=== PATIENT | male | born 1960 | race Caucasian/White ===

== ENCOUNTER 2016-12-20 15:50 | Inpatient (IN) | payer OTHER ==
[~2016-12-20] VITALS: Ht 175.3 cm; Wt 72.5 kg
[~2016-12-20 15:50] MED LIST: ASPI81 PO; CENTTAB9 PO; HYDR12.56 PO; LISI-360 PO
[2016-12-20] MEDS ORDERED: IOHEXOL 350 MG/ML 10 ML VIAL (for RAD DIAG) IVCONTRAST ONE (15:51)
[2016-12-20] MEDS ORDERED: MORPHINE SULFATE 8 MG/ML INJ ONE (15:54)
[2016-12-20] MEDS ORDERED: ONDANSETRON HCL 4 MG/2 ML VIAL ONE (15:55)
[2016-12-20] MEDS ORDERED: DIPHTH/TETANUS/ACEL PERTUSSIS (BOOSTER) 0.5 ML VIAL/PFS IM ONE (16:03)
[2016-12-20 16:22] LABS: AUTOMATED NEUTROPHIL # 6.2 TH/MM3 (1.8-7.7); BASOPHIL # 0.1 TH/MM3 (0-0.2); EOSINOPHIL # 0.3 TH/MM3 (0-0.4); EOSINOPHIL % 2.7 % (0.0-4.0); HEMATOCRIT 48.8 % (39.0-51.0); HEMO FLAGS DIFF FINAL; LYMPH % 36.4 % (9.0-44.0); LYMPHOCYTE # 4.3 TH/MM3 (1.0-4.8); MEAN CORPUSCULAR HEMOGLOBIN 31.4 PG (27.0-34.0); MEAN CORPUSCULAR HGB CONC 34.1 % (32.0-36.0); MONO % 7.6 % (0.0-8.0); NEUT % 52.3 % (16.0-70.0); PLATELET COUNT 211 TH/MM3 (150-450); RED BLOOD COUNT 5.31 MIL/MM3 (4.50-5.90); RED CELL DISTRIBUTION WIDTH 13.6 % (11.6-17.2); WHITE BLOOD COUNT 11.8 TH/MM3 (4.0-11.0)
[2016-12-20 16:25] VITALS: O2SAT 98
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
[2016-12-20] MEDS ORDERED: ceFAZolin 2 GM PREMIX 50 ML ONE (16:29)
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
[2016-12-20 16:33] LABS: APTT (PATIENT) 24.7 SEC (24.3-30.1); PROTHROMBIN TIME - PATIENT 10.7 SEC (9.8-11.6)
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
[2016-12-20 16:51] VITALS: BP 159/82; PULSE 95; RESP 20; O2SAT 96
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
[2016-12-20] MEDS ORDERED: MORPHINE SULFATE 4 MG/ML INJ IV PUSH ONE (17:15)
[2016-12-20 17:57] VITALS: BP 150/89; PULSE 85; RESP 22; O2SAT 96
[2016-12-20] MEDS ORDERED: HYDROmorphone HCL PF 1 MG/ML VIAL ONE (18:06)
[2016-12-20 18:15] VITALS: BP 158/86; PULSE 88; RESP 30; TEMP 99.2; O2SAT 95
[2016-12-20] MEDS ORDERED: ENALAPRILAT 1.25 MG/ML VIAL IV PUSH PRN (18:30)
[2016-12-20] MEDS ORDERED: ACETAMINOPHEN/HYDROcodone 325 MG/5 MG TAB PO PRN ×2 (18:30)
[2016-12-20] MEDS ORDERED: MISCELLANEOUS NURSING INFORMATION XX SCH (18:30)
[2016-12-20] MEDS ORDERED: CHLORHEXIDINE GLUCONATE 2 % 1 PACK (2 CLOTHS) TOP PRN (18:30)
[2016-12-20] MEDS ORDERED: SODIUM CHLORIDE 0.9% FLUSH 10 ML FLUSH IV FLUSH PRN (18:30)
[2016-12-20] MEDS ORDERED: ONDANSETRON HCL 4 MG/2 ML VIAL IV PUSH PRN (18:30)
[2016-12-20] MEDS: SODIUM CHLOR 0.9% 1000 ML INJ 1,000 ML IV SCH (18:32)
[2016-12-20] MEDS: HYDROmorphone HCL PF 1 MG/ML VIAL IVP PRN (18:32)
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
[2016-12-20 20:00] VITALS: BP 118/81; PULSE 72; PULSE 76; RESP 18; TEMP 99.4; O2SAT 94; O2SAT 95
[2016-12-20] MEDS: DOCUSATE SODIUM 50 MG/SENNA 8.6 MG TAB PO SCH (20:24)
[2016-12-20] MEDS: PANTOPRAZOLE SODIUM 40 MG VIAL IVP SCH (20:24)
[2016-12-20 22:00] VITALS: PULSE 94
[2016-12-21] VITALS (10 sets, daily range): BP systolic 118–171; BP diastolic 74–95; PULSE 58–77; RESP 16–29; TEMP 98.2–99.9; O2SAT 94–97
[2016-12-21] MEDS: HYDROmorphone HCL PF 1 MG/ML VIAL IVP PRN ×2 (00:36→08:11)
[2016-12-21 05:07] LABS: AUTOMATED NEUTROPHIL # 7.3 TH/MM3 (1.8-7.7); BASOPHIL # 0.1 TH/MM3 (0-0.2); BASOPHIL % 0.9 % (0.0-2.0); EOSINOPHIL # 0.1 TH/MM3 (0-0.4); EOSINOPHIL % 1.1 % (0.0-4.0); HEMATOCRIT 42.8 % (39.0-51.0); HEMO FLAGS DIFF FINAL; LYMPH % 19.9 % (9.0-44.0); LYMPHOCYTE # 2.1 TH/MM3 (1.0-4.8); MEAN CELL VOLUME 92.1 FL (80.0-100.0); MEAN CORPUSCULAR HEMOGLOBIN 31.9 PG (27.0-34.0); MEAN CORPUSCULAR HGB CONC 34.6 % (32.0-36.0); MONO % 10.2 % (0.0-8.0); NEUT % 67.9 % (16.0-70.0); PLATELET COUNT 151 TH/MM3 (150-450); RED BLOOD COUNT 4.64 MIL/MM3 (4.50-5.90); RED CELL DISTRIBUTION WIDTH 13.6 % (11.6-17.2); WHITE BLOOD COUNT 10.8 TH/MM3 (4.0-11.0)
[2016-12-21 05:29] LABS: BICARBONATE 26.9 MEQ/L (21.0-32.0); POTASSIUM 3.6 MEQ/L (3.5-5.1)
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
[2016-12-21] MEDS: CHLORHEXIDINE GLUCONATE 2 % 1 PACK (2 CLOTHS) TOP SCH (06:23)
[2016-12-21] MEDS: SODIUM CHLOR 0.9% 1000 ML INJ 1,000 ML IV SCH ×2 (06:23→13:10)
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
[2016-12-21] MEDS: METHOCARBAMOL 500 MG TAB PO SCH ×3 (08:09→23:47)
[2016-12-21] MEDS: LACTULOSE SYRUP 20 GM/30 ML CUP PO SCH (08:09)
[2016-12-21] MEDS: LIDOCAINE HCL 5% PATCH T-DERMAL SCH (08:10)
[2016-12-21] MEDS: DOCUSATE SODIUM 50 MG/SENNA 8.6 MG TAB PO SCH ×2 (08:10→20:41)
[2016-12-21] MEDS ORDERED: ePHEDrine/NS 25 MG/5 ML SYR IV ONE ×2 (09:39)
[2016-12-21] MEDS ORDERED: PHENYLEPH/NS 1000 MCG/10 ML SYR IV ONE (09:39)
[2016-12-21] MEDS ORDERED: NEOSTIGMINE 3 MG/3 ML SYR IV ONE (09:39)
[2016-12-21] MEDS ORDERED: DEXAMETHASONE SOD PHOS 4 MG/ML VIAL IV ONE (09:39)
[2016-12-21] MEDS ORDERED: GLYCOPYRROLATE 1 MG/5 ML SYRINGE IV PUSH ONE (09:39)
[2016-12-21] MEDS ORDERED: LACTATED RINGER'S 1000 ML INJ 1,000 ML IV ONE (09:39)
[2016-12-21] MEDS ORDERED: ONDANSETRON HCL 4 MG/2 ML VIAL IV PUSH ONE (09:39)
[2016-12-21] MEDS ORDERED: MIDAZOLAM HCL 2 MG/2 ML VIAL IV ONE (09:39)
[2016-12-21] MEDS ORDERED: PROPOFOL 200 MG/20 ML AMP IV ONE (09:39)
[2016-12-21] MEDS ORDERED: ROCURONIUM INJ 50 MG/5 ML SYRINGE IV PUSH ONE (09:41)
[2016-12-21] MEDS ORDERED: LIDOCAINE HCL 1% PF 5 ML AMPULE OTHER ONE (09:41)
[2016-12-21] MEDS ORDERED: GENTAMICIN SULFATE 80 MG/2 ML VIAL ONE (10:17)
[2016-12-21] MEDS ORDERED: VANCOMYCIN HCL 1000 MG VIAL ONE (10:17)
[2016-12-21] MEDS ORDERED: ceFAZolin 2 GM PREMIX 50 ML ONE (10:17)
--- NOTE | 2016-12-21 10:23 | PD.ORT.PN ---
Subjective Subjective Remarks POD 0 s/p ORIF left bimalleolar ankle fx s/p left clavicle fx - nonop stable in pacu Objective Vitals Vital Signs Date Time Temp Pulse Resp B/P (MAP) Pulse Ox O2 Delivery O2 Flow Rate FiO2 12/21/16 08:30 94 Nasal Cannula 1.50 12/21/16 08:00 99.9 65 21 158/88 (111) 96 12/21/16 08:00 75 12/21/16 07:00 92 Nasal Cannula 2.00 12/21/16 06:00 60 12/21/16 04:00 99.3 58 28 118/74 (89) 95 12/21/16 04:00 58 12/21/16 02:00 60 12/21/16 00:00 99.5 72 29 150/95 (113) 95 12/21/16 00:00 72 12/20/16 22:00 94 12/20/16 20:00 94 Nasal Cannula 2.00 12/20/16 20:00 99.4 76 18 118/81 (93) 95 12/20/16 20:00 72 12/20/16 19:00 92 Nasal Cannula 2.00 12/20/16 18:32 12/20/16 18:15 99.2 88 30 158/86 (110) 95 12/20/16 18:15 95 Nasal Cannula 2.00 12/20/16 17:57 85 22 150/89 (109) 96 Nasal Cannula 2.00 12/20/16 17:19 20 12/20/16 16:51 95 20 159/82 (107) 96 Nasal Cannula 2.00 12/20/16 16:25 98 Nasal Cannula 4.00 12/20/16 16:25 98 4.00 I/O 12/20/16 12/20/16 12/20/16 12/21/16 12/21/16 12/21/16 07:00 15:00 23:00 07:00 15:00 23:00 Intake Total 990 ml Output Total 500 ml Balance 490 ml Intake IV Total 990 ml Output Urine Total 500 ml # Voids 3 Result Diagram: 12/21/16 0413 12/21/16 0413 Other Results Laboratory Tests Test 12/20/16 15:57 Prothromb Time International Ratio 1.0 RATIO Prothrombin Time 10.7 SEC (9.8-11.6) Imaging Last 24 hours Impressions Chest X-Ray 12/21/16 0600 Signed Impressions: Service Date/Time: Wednesday, December 21, 2016 05:41 - CONCLUSION: 1. Slight improvement of left upper lobe density. 2. Bibasilar densities likely atelectasis. Abel George MD Pelvis X-Ray 12/20/16 1600 Signed Impressions: Service Date/Time: December 15:44 - CONCLUSION: Unremarkable examination of the pelvis. Bart Haji Jr., MD Head CT 12/20/16 1600 Signed Impressions: Service Date/Time: December 16:08 - CONCLUSION: 1. Acute fracture involving the base of skull on the left which extends through the mastoid air cells. 2. No acute intracranial hemorrhage. Bart Haji Jr., MD Chest X-Ray 12/20/16 1600 Signed Impressions: Service Date/Time: December 15:44 - CONCLUSION: Questionable acute left clavicular fracture. Bart Haji Jr., MD Chest CT 12/20/16 1600 Signed Impressions: Service Date/Time: December 16:14 - CONCLUSION: 1. Pulmonary contusion in the left upper lobe. No pneumothorax is present. 2. There are acute fractures of the left clavicle and left first through third ribs. Armando Mcgregor MD Cervical Spine CT 12/20/16 1600 Signed Impressions: Service Date/Time: December 16:08 - CONCLUSION: 1. No acute cervical spine abnormality is visualized. There is degenerative disc disease at C5-C6. 2. Acute fractures of the left first and second ribs. 3. Fluid in the left mastoid air cells and middle ear, suspicious for temporal bone fracture. Armando Mcgregor MD Abdomen/Pelvis CT 12/20/16 1600 Signed Impressions: Service Date/Time: December 16:14 - CONCLUSION: 1. No acute injury is identified within the abdomen or pelvis. 2. Nonacute findings include cholelithiasis and moderate atherosclerotic disease. Armando Mcgregor MD Objective Remarks LLE: + short leg splint. intact. NVI LUE: pain with palpation to clavicle. nvi distally Assessment & Plan Assessment and Plan 1) Left Bimalleolar Ankle Fx s/p ORIF - POd 0 -NWB -maintain splint at all times -elevate -CM for home with HHC vs rehab -f/u with [facility] or [facility] in 2 weeks 2) Left Clavicle Fx - nonop -NWB -maintain sling at all times. -repeat xrays in 2 weeks Ayush Rodarte Dec 21, 2016 10:23
[2016-12-21] MEDS ORDERED: WHEEMIS3 (10:24)
[2016-12-21] MEDS ORDERED: HYDR-3580 PO (10:24)
[2016-12-21] MEDS ORDERED: Post-op Orders (for Pharmacy) MISC XX ONE (12:08)
[2016-12-21] MEDS ORDERED: DO NOT ADM ANY ANTICOAGULANT DRUGS PRN (12:08)
--- NOTE | 2016-12-21 12:20 | PD.OP ---
cc: David Burgos MD Operative Report Date of Surgery: Dec 21, 2016 Preoperative Diagnosis: Minimally displaced left clavicle fracture, displaced left ankle bimalleolar fracture Postoperative Diagnosis: Procedure: Open reduction internal fixation of left ankle bimalleolar fracture, stress exam of left ankle syndesmosis under fluoroscopy, open reduction internal fixation left ankle syndesmosis Surgeon: David Burgos [employer] Clerk(s): NAHOMY Cortez PA-C The surgical procedure was assisted by my physician medical practice assistant. My P.A. presence was necessary throughout this case for the manipulation and positioning of the surgical extremity. My P.A. was assisting me throughout the duration of this procedure. The skill set of a physician medical practice assistant was medically necessary to complete this procedure. During the surgical case the assembler surgical garment was working at the back table and the physician medical practice assistant was directly assisting me. Operation and Findings: Patient was seen and evaluated preoperatively and found to have a displaced left bimalleolar ankle fracture and nondisplaced left clavicle fracture. Informed consent was obtained after a detailed discussion of risk and benefits of surgery. The operative site was marked. Patient was brought to the OR, placed on the OR table, and given IV sedation and general endotracheal anesthesia. IV antibiotics were given preoperatively. A timeout procedure was performed. The left leg was prepped with alcohol followed by Hibiclens and draped in the usual sterile fashion. Attention was turned towards the distal fibula. A 5-inch incision was made over the distal fibula. The subcutaneous tissue was dissected with Bovie. The fracture site was visualized. The fracture site was cleaned with curets. The fracture was now reduced. The fracture keyed into anatomic alignment. K-wires were used to h old provisional fixation. An ITS plate was selected. The plate was provisionally held to bone with K-wires. 3.5 cortical screws were used to compress the plate to bone. Multiple screws were placed above and below the fracture. Next attention was turned towards the medial malleolus. The medial malleolus supposed through a 3 cm incision. Saphenous vein was retracted. Fracture was visualized. Fracture was cleaned with curettes. Fracture was now reduced and keyed into anatomic alignment. K wires were used to hold provisional fixation. 2 guidepins for the 4.0 cannulated screws were placed in a retrograde fashion across the fracture. Fluoroscopy was used to confirm guidepin placement. Cannulated drill was placed over the guidepin. 2 appropriate length screws were now placed. Good compression was applied. Fluoroscopy confirmed well aligned fracture with well-placed hardware. Next, attention was turned to the syndesmosis. The syndesmosis was stressed. There was clear widening of the syndesmosis with external rotation of the ankle. The syndesmosis was now held in a reduced position with the ankle in neutral position. Two 3.5 cortical screws were now placed through the fibula plate into the tibia. Fluoroscopy confirmed appropriate screw placement with well-aligned syndesmosis. Incisions were thoroughly irrigated. The subcutaneous tissue was closed with 3-0 Vicryl and the skin was closed with 3-0 nylon. Sterile dressings were applied. A well molded well-padded splint was applied. The patient was transferred to Recovery in stable condition. Needle and sponge counts were correct. David Burgos MD Dec 21, 2016 12:20
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
[2016-12-21] MEDS ORDERED: *LABETALOL HCL 100 MG/20 ML VIAL PERIprocedural Use ONLY ONE (13:33)
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
--- NOTE | 2016-12-21 14:38 | RADRPT ---
EXAM DATE/TIME: 12/21/2016 11:23 [facility] COMPARISON: ANKLE LEFT LIMITED (AP&LAT), December 20, 2016, 15:44. INDICATIONS : ORIF of the left ankle. MEDICAL HISTORY : Hypertension. Smoker. SURGICAL HISTORY : None. ENCOUNTER: Subsequent ACUITY: 2 days PAIN SCORE: Non-responsive. LOCATION: Left ankle. FINDINGS: 4 spot fluoroscopic images obtained in the operating room during a procedure document a lateral fibul ar sideplate with multiple interlocking screws. There are 2 syndesmotic screws and there are 2 obliqu e partially threaded cannulated screws traversing the medial malleolus. There is improved alignment w ith fibular fracture remaining visualized. Ankle mortise is intact. CONCLUSION: Improved alignment following left ankle ORIF, as above. Armando Mcgregor MD on December 21, 2016 at 14:35 Board Certified Radiologist. This report was verified electronically.
[2016-12-21] MEDS: PANTOPRAZOLE SODIUM 40 MG VIAL IVP SCH (17:38)
[2016-12-21] MEDS: ceFAZolin 2 GM PREMIX 50 ML IV SCH (17:38)
[2016-12-21] MEDS: ACETAMINOPHEN/HYDROcodone 325 MG/7.5 MG TAB PO PRN ×2 (17:39→20:42)
--- NOTE | 2016-12-21 18:20 | OTSOAPIP ---
TIME SESSION COMPLETED: AM TREATMENT TIME: 0 MINS. CHART REVIEWED. ATTEMPTED TO SEE FOR OT EVALUATION HOWEVER PT OFF FLOOR FOR SURGERY. WILL FOLLOW NEXT DAY. Therapist: ERA NAIK OT/Brian Signature on file
[2016-12-21] MEDS: MAGNESIUM HYDROXIDE SUSP 30 ML CUP PO PRN (20:42)
[2016-12-21] MEDS: REMOVE OLD LIDOCAINE PATCH T-DERMAL SCH (21:00)
[2016-12-21] MEDS ORDERED: HYDROmorphone HCL PF 0.5 MG/0.5 ML SYRINGE IV PRN (23:30)
[2016-12-22] VITALS (8 sets, daily range): BP systolic 150–162; BP diastolic 75–101; PULSE 69–84; RESP 17–18; TEMP 97.1–99.6; O2SAT 92–97
[2016-12-22] MEDS: ENOXAPARIN SODIUM 40 MG/0.4 ML SYRINGE SQ SCH (00:20)
[2016-12-22] MEDS: SODIUM CHLOR 0.9% 1000 ML INJ 1,000 ML IV SCH ×3 (01:00→20:34)
[2016-12-22] MEDS: ceFAZolin 2 GM PREMIX 50 ML IV SCH ×2 (03:11→12:51)
[2016-12-22] MEDS: CHLORHEXIDINE GLUCONATE 2 % 1 PACK (2 CLOTHS) TOP SCH (03:11)
[2016-12-22 05:35] LABS: ANION GAP 7 MEQ/L (5-15); AST (GOT) 73 U/L (15-37); BLOOD UREA NITROGEN 14 MG/DL (7-18); CHLORIDE 105 MEQ/L (98-107); GLOMERULAR FILTRATION RATE 79 ML/MIN (>89); POTASSIUM 3.8 MEQ/L (3.5-5.1); SODIUM (NA) 137 MEQ/L (136-145)
[2016-12-22 05:40] LABS: ALKALINE PHOSPHATASE 63 U/L (45-117); ALT (GPT) 34 U/L (12-78); TOTAL BILIRUBIN ADULT 0.6 MG/DL (0.2-1.0)
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
[2016-12-22] MEDS: ACETAMINOPHEN/HYDROcodone 325 MG/7.5 MG TAB PO PRN ×4 (05:49→20:34)
[2016-12-22 06:33] LABS: AUTOMATED NEUTROPHIL # 8.9 TH/MM3 (1.8-7.7); BASOPHIL # 0.1 TH/MM3 (0-0.2); BASOPHIL % 0.4 % (0.0-2.0); EOSINOPHIL # 0.1 TH/MM3 (0-0.4); EOSINOPHIL % 0.8 % (0.0-4.0); HEMATOCRIT 43.5 % (39.0-51.0); HEMO FLAGS DIFF FINAL; LYMPH % 15.7 % (9.0-44.0); LYMPHOCYTE # 1.9 TH/MM3 (1.0-4.8); MEAN CELL VOLUME 94.5 FL (80.0-100.0); MEAN CORPUSCULAR HEMOGLOBIN 32.1 PG (27.0-34.0); MEAN CORPUSCULAR HGB CONC 33.9 % (32.0-36.0); MONO % 10.5 % (0.0-8.0); NEUT % 72.6 % (16.0-70.0); PLATELET COUNT 144 TH/MM3 (150-450); RED CELL DISTRIBUTION WIDTH 13.8 % (11.6-17.2); WHITE BLOOD COUNT 12.3 TH/MM3 (4.0-11.0)
[2016-12-22] MEDS: RESP: ALBUTEROL 2.5 MG/IPRATROPIUM 0.5 MG NEB (SCH) NEB ×4 (08:00→20:37)
--- NOTE | 2016-12-22 08:08 | PD.ORT.PN ---
Subjective Post Op Day #: 1 Subjective Remarks painful but tolerable Objective Vitals Vital Signs Date Time Temp Pulse Resp B/P (MAP) Pulse Ox O2 Delivery O2 Flow Rate FiO2 12/22/16 04:00 98.4 69 17 154/93 (113) 97 12/21/16 23:15 98.7 68 16 171/84 (113) 95 12/21/16 21:45 94 Nasal Cannula 2.00 12/21/16 20:00 99.5 77 18 141/82 (101) 95 12/21/16 19:32 Nasal Cannula 2.00 12/21/16 14:57 98.2 68 17 142/88 (106) 97 12/21/16 13:45 64 16 148/87 (107) 97 Nasal Cannula 2 12/21/16 13:30 64 16 156/91 (112) 96 Nasal Cannula 2 12/21/16 13:15 60 16 154/89 (110) 96 Nasal Cannula 2 12/21/16 13:00 62 16 160/92 (114) 96 Nasal Cannula 2 12/21/16 12:45 64 16 142/73 (96) 96 Nasal Cannula 2 12/21/16 12:30 76 16 132/79 (96) 95 Nasal Cannula 2 12/21/16 12:15 64 16 132/81 (98) 95 Nasal Cannula 2 12/21/16 12:08 97.8 70 16 135/71 (92) 98 Nasal Cannula 2 12/21/16 08:30 94 Nasal Cannula 1.50 I/O 12/21/16 12/21/16 12/21/16 12/22/16 12/22/16 12/22/16 07:00 15:00 23:00 07:00 15:00 23:00 Intake Total 990 ml 1420 ml 600 ml 1480 ml Output Total 500 ml 40 ml 600 ml Balance 490 ml 1380 ml 0 ml 1480 ml Intake Oral 600 ml 480 ml IV Total 990 ml 20 ml 1000 ml Other 1400 ml Output Urine Total 500 ml 600 ml Estimated Blood Loss 40 ml # Voids 3 1 2 Result Diagram: 12/22/16 0450 12/22/16 0450 Imaging Last 24 hours Impressions Chest X-Ray 12/21/16 0600 Signed Impressions: Service Date/Time: Wednesday, December 21, 2016 05:41 - CONCLUSION: 1. Slight improvement of left upper lobe density. 2. Bibasilar densities likely atelectasis. Abel George MD Pelvis X-Ray 12/20/161599 Signed Impressions: Service Date/Time: December 15:44 - CONCLUSION: Unremarkable examination of the pelvis. Bart Haji Jr., MD Head CT 12/20/161599 Signed Impressions: Service Date/Time: December 16:08 - CONCLUSION: 1. Acute fracture involving the base of skull on the left which extends through the mastoid air cells. 2. No acute intracranial hemorrhage. Bart Haji Jr., MD Chest X-Ray 12/20/161599 Signed Impressions: Service Date/Time: December 15:44 - CONCLUSION: Questionable acute left clavicular fracture. Bart Haji Jr., MD Chest CT 12/20/161599 Signed Impressions: Service Date/Time: December 16:14 - CONCLUSION: 1. Pulmonary contusion in the left upper lobe. No pneumothorax is present. 2. There are acute fractures of the left clavicle and left first through third ribs. Armando Mcgregor MD Cervical Spine CT 12/20/161599 Signed Impressions: Service Date/Time: December 16:08 - CONCLUSION: 1. No acute cervical spine abnormality is visualized. There is degenerative disc disease at C5-C6. 2. Acute fractures of the left first and second ribs. 3. Fluid in the left mastoid air cells and middle ear, suspicious for temporal bone fracture. Armando Mcgregor MD Abdomen/Pelvis CT 12/20/161599 Signed Impressions: Service Date/Time: December 16:14 - CONCLUSION: 1. No acute injury is identified within the abdomen or pelvis. 2. Nonacute findings include cholelithiasis and moderate atherosclerotic disease. Armando Mcgregor MD Objective Remarks LLE: + short leg splint. intact. NVI LUE: pain with palpation to clavicle. nvi distally. sling repositioned. Assessment & Plan Ortho Post Op Day #: 1 Problem List: Assessment and Plan 1) Left Bimalleolar Ankle Fx s/p ORIF - POD 1 -NWB -maintain splint at all times -elevate -CM for home with C vs rehab -f/u with [facility] or [facility] in 2 weeks 2) Left Clavicle Fx - nonop -NWB -maintain sling at all times. -repeat xrays in 2 weeks cleared for d/c by Vladimir Gracia Dec 22, 2016 08:08
[2016-12-22] MEDS: FAMOTIDINE 20 MG TAB PO SCH ×2 (09:45→20:33)
[2016-12-22] MEDS: LIDOCAINE HCL 5% PATCH T-DERMAL SCH (09:45)
[2016-12-22] MEDS: METHOCARBAMOL 500 MG TAB PO SCH ×2 (09:45→16:49)
[2016-12-22] MEDS: DOCUSATE SODIUM 50 MG/SENNA 8.6 MG TAB PO SCH ×2 (09:46→20:33)
[2016-12-22] MEDS: HYDROCHLOROTHIAZIDE 12.5 MG CAP PO SCH (09:46)
[2016-12-22] MEDS: LACTULOSE SYRUP 20 GM/30 ML CUP PO SCH (09:53)
[2016-12-22] MEDS: MAGNESIUM HYDROXIDE SUSP 30 ML CUP PO PRN ×2 (12:52→20:33)
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
[2016-12-22] MEDS ORDERED: MAGNESIUM CITRATE SOLN 300 ML BTL PO ONE (14:30)
[2016-12-22] MEDS: NICOTINE 21 MG/24 HR PATCH T-DERMAL SCH (16:54)
[2016-12-22] MEDS: traZODone HCL 50 MG TAB PO SCH (20:33)
[2016-12-22] MEDS: ATORVASTATIN 20 MG TAB PO SCH (20:33)
[2016-12-22] MEDS: REMOVE OLD PATCH T-DERMAL SCH (20:39)
[2016-12-22] MEDS: REMOVE OLD LIDOCAINE PATCH T-DERMAL SCH (20:39)
[2016-12-23] MEDS: METHOCARBAMOL 500 MG TAB PO SCH ×4 (00:14→23:33)
[2016-12-23] MEDS: ENOXAPARIN SODIUM 40 MG/0.4 ML SYRINGE SQ SCH ×2 (00:15→23:33)
[2016-12-23] MEDS: ACETAMINOPHEN/HYDROcodone 325 MG/7.5 MG TAB PO PRN ×4 (00:15→20:24)
[2016-12-23 03:50] VITALS: BP 134/79; PULSE 73; RESP 16; TEMP 98.7; O2SAT 92
[2016-12-23 06:35] LABS: ANION GAP 7 MEQ/L (5-15); AST (GOT) 77 U/L (15-37); BICARBONATE 27.9 MEQ/L (21.0-32.0); BLOOD UREA NITROGEN 11 MG/DL (7-18); CHLORIDE 101 MEQ/L (98-107); GLOMERULAR FILTRATION RATE 101 ML/MIN (>89); POTASSIUM 3.6 MEQ/L (3.5-5.1); SODIUM (NA) 136 MEQ/L (136-145)
[2016-12-23 06:36] LABS: ALT (GPT) 32 U/L (12-78)
[2016-12-23 06:39] LABS: ALKALINE PHOSPHATASE 57 U/L (45-117); TOTAL BILIRUBIN ADULT 0.6 MG/DL (0.2-1.0)
[2016-12-23 06:40] LABS: AUTOMATED NEUTROPHIL # 7.1 TH/MM3 (1.8-7.7); BASOPHIL % 0.4 % (0.0-2.0); EOSINOPHIL # 0.1 TH/MM3 (0-0.4); EOSINOPHIL % 0.9 % (0.0-4.0); HEMATOCRIT 37.4 % (39.0-51.0); HEMO FLAGS DIFF FINAL; LYMPH % 12.7 % (9.0-44.0); LYMPHOCYTE # 1.2 TH/MM3 (1.0-4.8); MEAN CELL VOLUME 92.7 FL (80.0-100.0); MEAN CORPUSCULAR HEMOGLOBIN 32.3 PG (27.0-34.0); MEAN CORPUSCULAR HGB CONC 34.9 % (32.0-36.0); MONO % 10.4 % (0.0-8.0); NEUT % 75.6 % (16.0-70.0); PLATELET COUNT 138 TH/MM3 (150-450); RED BLOOD COUNT 4.03 MIL/MM3 (4.50-5.90); RED CELL DISTRIBUTION WIDTH 13.1 % (11.6-17.2); WHITE BLOOD COUNT 9.4 TH/MM3 (4.0-11.0)
[2016-12-23] MEDS: SODIUM CHLOR 0.9% 1000 ML INJ 1,000 ML IV SCH ×2 (06:45→17:00)
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
--- NOTE | 2016-12-23 08:07 | PD.ORT.PN ---
Subjective Subjective Remarks Patient comfortable this morning. States his pain is very well-controlled. Objective Vitals Vital Signs Date Time Temp Pulse Resp B/P (MAP) Pulse Ox O2 Delivery O2 Flow Rate FiO2 12/23/16 03:50 98.7 73 16 134/79 (97) 92 12/22/16 23:50 97.1 84 17 150/75 (100) 93 12/22/16 20:37 94 Nasal Cannula 2.00 12/22/16 19:40 99.6 81 18 160/86 (110) 94 12/22/16 16:00 98.0 77 18 158/101 (120) 95 12/22/16 12:00 97.4 74 18 156/86 (109) 93 12/22/16 10:12 94 Nasal Cannula 2.00 I/O 12/22/16 12/22/16 12/22/16 12/23/16 12/23/16 12/23/16 07:00 15:00 23:00 07:00 15:00 23:00 Intake Total 1480 ml 50 ml 1080 ml 240 ml Output Total 400 ml Balance 1480 ml 50 ml 1080 ml -160 ml Intake Oral 480 ml 1080 ml 240 ml IV Total 1000 ml 50 ml Output Urine Total 400 ml # Voids 2 8 # Bowel Movements 0 0 Result Diagram: 12/23/16 0430 12/23/16 0430 Imaging Last 24 hours Impressions Chest X-Ray 12/21/16 0600 Signed Impressions: Service Date/Time: Wednesday, December 21, 2016 05:41 - CONCLUSION: 1. Slight improvement of left upper lobe density. 2. Bibasilar densities likely atelectasis. Abel George MD Pelvis X-Ray 12/20/16 1600 Signed Impressions: Service Date/Time: December 15:44 - CONCLUSION: Unremarkable examination of the pelvis. Bart Haji Jr., MD Head CT 12/20/16 1600 Signed Impressions: Service Date/Time: December 16:08 - CONCLUSION: 1. Acute fracture involving the base of skull on the left which extends through the mastoid air cells. 2. No acute intracranial hemorrhage. Bart Haji Jr., MD Chest X-Ray 12/20/16 1600 Signed Impressions: Service Date/Time: Thursday, December 20, 2016 15:44 - CONCLUSION: Questionable acute left clavicular fracture. Bart Haji Jr., MD Chest CT 12/20/16 1600 Signed Impressions: Service Date/Time: December 16:14 - CONCLUSION: 1. Pulmonary contusion in the left upper lobe. No pneumothorax is present. 2. There are acute fractures of the left clavicle and left first through third ribs. Armando Mcgregor MD Cervical Spine CT 12/20/16 1600 Signed Impressions: Service Date/Time: December 16:08 - CONCLUSION: 1. No acute cervical spine abnormality is visualized. There is degenerative disc disease at C5-C6. 2. Acute fractures of the left first and second ribs. 3. Fluid in the left mastoid air cells and middle ear, suspicious for temporal bone fracture. Armando Mcgregor MD Abdomen/Pelvis CT 12/20/16 1600 Signed Impressions: Service Date/Time: December 16:14 - CONCLUSION: 1. No acute injury is identified within the abdomen or pelvis. 2. Nonacute findings include cholelithiasis and moderate atherosclerotic disease. Armando Mcgregor MD Objective Remarks LLE: + short leg splint. intact. NVI LUE: pain with palpation to clavicle. nvi distally. Assessment & Plan Assessment and Plan 1) Left Bimalleolar Ankle Fx s/p ORIF - POD 2 -NWB -maintain splint at all times -elevate -CM for home with HHC vs rehab -f/u with Shakira or PA in 2 weeks 2) Left Clavicle Fx - nonop -NWB -maintain sling at all times. -repeat xrays in 2 weeks cleared for d/c by Shara Kim MD Dec 23, 2016 08:06
[2016-12-23] MEDS: RESP: ALBUTEROL 2.5 MG/IPRATROPIUM 0.5 MG NEB (SCH) NEB ×4 (08:58→20:08)
[2016-12-23] MEDS: NICOTINE 21 MG/24 HR PATCH T-DERMAL SCH (09:00)
[2016-12-23 09:01] VITALS: O2SAT 93
[2016-12-23] MEDS: LACTULOSE SYRUP 20 GM/30 ML CUP PO SCH (09:07)
[2016-12-23] MEDS: LIDOCAINE HCL 5% PATCH T-DERMAL SCH (09:08)
[2016-12-23] MEDS: DOCUSATE SODIUM 50 MG/SENNA 8.6 MG TAB PO SCH ×2 (09:09→20:23)
[2016-12-23] MEDS: FAMOTIDINE 20 MG TAB PO SCH ×2 (09:09→20:23)
[2016-12-23] MEDS: HYDROCHLOROTHIAZIDE 12.5 MG CAP PO SCH (09:10)
[2016-12-23] MEDS: MAGNESIUM HYDROXIDE SUSP 30 ML CUP PO PRN (09:16)
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
[2016-12-23] MEDS ORDERED: SOD PHOSPHATE/SOD BIPHOSPHATE (ADULT) ENEMA 133ML RECTAL ONE (12:45)
[2016-12-23 16:00] VITALS: BP 162/96; PULSE 80; RESP 18; TEMP 98.4; O2SAT 96
[2016-12-23 19:50] VITALS: BP 142/85; PULSE 96; RESP 18; TEMP 98.6; O2SAT 92
[2016-12-23 20:13] VITALS: O2SAT 93
[2016-12-23] MEDS: traZODone HCL 50 MG TAB PO SCH (20:23)
[2016-12-23] MEDS: ATORVASTATIN 20 MG TAB PO SCH (20:24)
[2016-12-23] MEDS: REMOVE OLD LIDOCAINE PATCH T-DERMAL SCH (20:25)
[2016-12-23] MEDS: REMOVE OLD PATCH T-DERMAL SCH (20:28)
[2016-12-23 23:35] VITALS: BP 157/94; PULSE 97; RESP 18; TEMP 99; O2SAT 92
[2016-12-24] VITALS (7 sets, daily range): BP systolic 139–156; BP diastolic 79–85; PULSE 71–90; RESP 18–24; TEMP 95.5–100.3; O2SAT 92–95
[2016-12-24] MEDS: SODIUM CHLOR 0.9% 1000 ML INJ 1,000 ML IV SCH (00:48)
[2016-12-24] MEDS: ACETAMINOPHEN/HYDROcodone 325 MG/7.5 MG TAB PO PRN ×2 (04:17→08:48)
--- NOTE | 2016-12-24 06:50 | RADRPT ---
EXAM DATE/TIME: 12/24/2016 06:01 [facility] COMPARISON: CHEST SINGLE AP, December 23, 2016, 6:28. INDICATIONS : Pain left chest and ribs, pulmonary contusion MEDICAL HISTORY : Hypertension. SURGICAL HISTORY : None. ENCOUNTER: Subsequent ACUITY: 4 - 6 days PAIN SCORE: 7/10 LOCATION: Bilateral chest FINDINGS: A single view of the chest demonstrates bibasilar patchy densities greater right lower lobe. Heart danielle rderline enlarged. The cardiomediastinal contours are unremarkable. Left-sided rib fracture. CONCLUSION: Bilateral pulmonary opacities greater right lower lobe and unchanged. Abel George MD on December 24, 2016 at 6:47 Board Certified Radiologist. This report was verified electronically.
[2016-12-24] MEDS ORDERED: LIDO5DIS5 T-DERMAL (06:52)
[2016-12-24] MEDS ORDERED: HYDR12.57 PO (06:52)
[2016-12-24] MEDS ORDERED: METH500T3 PO (06:52)
[2016-12-24] MEDS ORDERED: HYDR-3580 PO (06:52)
[2016-12-24] MEDS ORDERED: ENOX40P SQ (06:52)
[2016-12-24] MEDS ORDERED: ATOR20TA15 PO (06:52)
[2016-12-24] MEDS ORDERED: TRAZ50TA12 PO (06:52)
[2016-12-24] MEDS ORDERED: Lactulose Liq PO (06:52)
[2016-12-24] MEDS ORDERED: SENN1TAB PO (06:52)
--- NOTE | 2016-12-24 06:56 | PD.ORT.PN ---
Subjective Subjective Remarks POD 3 s/p ORIF left bimalleolar ankle fx s/p left clavicle fx - nonop doing well. pain well controlled. Objective Vitals Vital Signs Date Time Temp Pulse Resp B/P (MAP) Pulse Ox O2 Delivery O2 Flow Rate FiO2 12/24/16 05:21 18 12/24/16 04:05 100.3 90 18 140/79 (99) 92 12/23/16 23:35 99.0 97 18 157/94 (115) 92 12/23/16 22:02 Room Air 12/23/16 20:13 93 Nasal Cannula 2.50 12/23/16 19:50 98.6 96 18 142/85 (104) 92 12/23/16 16:00 98.4 80 18 162/96 (118) 96 12/23/16 09:05 Room Air 12/23/16 09:01 93 I/O 12/23/16 12/23/16 12/23/16 12/24/16 12/24/16 12/24/16 07:00 15:00 23:00 07:00 15:00 23:00 Intake Total 240 ml 240 ml 480 ml 480 ml Output Total 400 ml Balance -160 ml 240 ml 480 ml 480 ml Intake Oral 240 ml 240 ml 480 ml 480 ml Output Urine Total 400 ml # Voids 5 2 3 # Bowel Movements 0 3 1 1 Result Diagram: 12/23/16 0430 12/23/16 0430 Imaging Last 24 hours Impressions Chest X-Ray 12/21/16 0600 Signed Impressions: Service Date/Time: Wednesday, December 21, 2016 05:41 - CONCLUSION: 1. Slight improvement of left upper lobe density. 2. Bibasilar densities likely atelectasis. Abel Geroge MD Pelvis X-Ray 12/20/16 1600 Signed Impressions: Service Date/Time: December 15:44 - CONCLUSION: Unremarkable examination of the pelvis. Bart Haji Jr., MD Head CT 12/20/16 1600 Signed Impressions: Service Date/Time: December 16:08 - CONCLUSION: 1. Acute fracture involving the base of skull on the left which extends through the mastoid air cells. 2. No acute intracranial hemorrhage. Bart Haji Jr., MD Chest X-Ray 12/20/16 1600 Signed Impressions: Service Date/Time: December 15:44 - CONCLUSION: Questionable acute left clavicular fracture. Bart Haji Jr., MD Chest CT 12/20/16 1600 Signed Impressions: Service Date/Time: December 16:14 - CONCLUSION: 1. Pulmonary contusion in the left upper lobe. No pneumothorax is present. 2. There are acute fractures of the left clavicle and left first through third ribs. Armando Mcgregor MD Cervical Spine CT 12/20/16 1600 Signed Impressions: Service Date/Time: December 16:08 - CONCLUSION: 1. No acute cervical spine abnormality is visualized. There is degenerative disc disease at C5-C6. 2. Acute fractures of the left first and second ribs. 3. Fluid in the left mastoid air cells and middle ear, suspicious for temporal bone fracture. Armando Mcgregor MD Abdomen/Pelvis CT 12/20/16 1600 Signed Impressions: Service Date/Time: December 16:14 - CONCLUSION: 1. No acute injury is identified within the abdomen or pelvis. 2. Nonacute findings include cholelithiasis and moderate atherosclerotic disease. Armando Mcgregor MD Objective Remarks LLE: + short leg splint. intact. NVI LUE: pain with palpation to clavicle. nvi distally. Assessment & Plan Assessment and Plan 1) Left Bimalleolar Ankle Fx s/p ORIF - POD 3 -NWB -maintain splint at all times -elevate -CM for home with HHC vs rehab -ortho cleared for DC home -f/u with [facility] or [facility] in 2 weeks 2) Left Clavicle Fx - nonop -NWB -maintain sling at all times. -repeat xrays in 2 weeks cleared for d/c by Ayush Quiles Dec 24, 2016 06:56
--- NOTE | 2016-12-24 06:56 | HHI.FF ---
Face to Face Verification Diagnosis: (1) Ankle fracture (2) Clavicular fracture Physical Therapy Gait training Left LE Weight Bearing: Non WB Occupational Therapy Left UE Weight Bearing: Non WB Nursing Dressing Changes: Do not change dressing (maintain splint at all times) I have seen patient Emerson Meyers on 12/24/16. My clinical findings support the need for the requested home health care services because: Ltd mobility - disease progression I certify that my clinical findings support that this patient is homebound because: Post-op weakness Ayush Rodarte Dec 24, 2016 06:56
[2016-12-24 07:01] LABS: AUTOMATED NEUTROPHIL # 10.9 TH/MM3 (1.8-7.7); BASOPHIL % 0.2 % (0.0-2.0); EOSINOPHIL % 0.3 % (0.0-4.0); HEMATOCRIT 35.4 % (39.0-51.0); HEMO FLAGS DIFF FINAL; LYMPH % 7.5 % (9.0-44.0); MEAN CELL VOLUME 92.2 FL (80.0-100.0); MEAN CORPUSCULAR HEMOGLOBIN 32.4 PG (27.0-34.0); MEAN CORPUSCULAR HGB CONC 35.1 % (32.0-36.0); MONO % 7.6 % (0.0-8.0); NEUT % 84.4 % (16.0-70.0); PLATELET COUNT 142 TH/MM3 (150-450); RED BLOOD COUNT 3.84 MIL/MM3 (4.50-5.90); RED CELL DISTRIBUTION WIDTH 13.3 % (11.6-17.2)
[2016-12-24 07:31] LABS: ANION GAP 6 MEQ/L (5-15); AST (GOT) 57 U/L (15-37); BLOOD UREA NITROGEN 14 MG/DL (7-18); CHLORIDE 100 MEQ/L (98-107); GLOMERULAR FILTRATION RATE 101 ML/MIN (>89); POTASSIUM 3.8 MEQ/L (3.5-5.1); SODIUM (NA) 134 MEQ/L (136-145)
[2016-12-24 07:35] LABS: ALKALINE PHOSPHATASE 56 U/L (45-117); ALT (GPT) 33 U/L (12-78); TOTAL BILIRUBIN ADULT 0.9 MG/DL (0.2-1.0)
[2016-12-24] MEDS: RESP: ALBUTEROL 2.5 MG/IPRATROPIUM 0.5 MG NEB (SCH) NEB ×4 (08:44→19:50)
[2016-12-24] MEDS: FAMOTIDINE 20 MG TAB PO SCH ×2 (08:48→19:42)
[2016-12-24] MEDS: HYDROCHLOROTHIAZIDE 12.5 MG CAP PO SCH (08:48)
[2016-12-24] MEDS: METHOCARBAMOL 500 MG TAB PO SCH ×2 (08:48→16:02)
[2016-12-24] MEDS: LIDOCAINE HCL 5% PATCH T-DERMAL SCH (08:49)
[2016-12-24] MEDS: DOCUSATE SODIUM 50 MG/SENNA 8.6 MG TAB PO SCH ×2 (08:49→19:43)
[2016-12-24] MEDS: NICOTINE 21 MG/24 HR PATCH T-DERMAL SCH (08:49)
[2016-12-24] MEDS: LACTULOSE SYRUP 20 GM/30 ML CUP PO SCH (08:49)
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
[2016-12-24] MEDS: traZODone HCL 50 MG TAB PO SCH (19:42)
[2016-12-24] MEDS: ATORVASTATIN 20 MG TAB PO SCH (19:43)
[2016-12-24] MEDS ORDERED: BISACODYL 10 MG SUPP RECTAL PRN (19:45)
[2016-12-24] MEDS: REMOVE OLD PATCH T-DERMAL SCH (19:48)
[2016-12-24] MEDS: REMOVE OLD LIDOCAINE PATCH T-DERMAL SCH (19:48)
[2016-12-25] MEDS: ENOXAPARIN SODIUM 40 MG/0.4 ML SYRINGE SQ SCH (00:17)
[2016-12-25] MEDS: METHOCARBAMOL 500 MG TAB PO SCH ×3 (00:17→15:59)
[2016-12-25 00:49] VITALS: O2SAT 93
[2016-12-25 01:45] VITALS: BP 176/81; PULSE 70; RESP 17; TEMP 99.4; O2SAT 93
[2016-12-25 04:55] VITALS: BP 147/85
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
[2016-12-25 08:00] VITALS: BP 155/84; PULSE 60; RESP 18; TEMP 98.8; O2SAT 93
[2016-12-25] MEDS: RESP: ALBUTEROL 2.5 MG/IPRATROPIUM 0.5 MG NEB (SCH) NEB ×3 (08:11→15:23)
[2016-12-25] MEDS: NICOTINE 21 MG/24 HR PATCH T-DERMAL SCH (09:00)
[2016-12-25] MEDS: FAMOTIDINE 20 MG TAB PO SCH (09:00)
[2016-12-25] MEDS: ACETAMINOPHEN/HYDROcodone 325 MG/7.5 MG TAB PO PRN ×2 (09:37→15:59)
[2016-12-25] MEDS: LACTULOSE SYRUP 20 GM/30 ML CUP PO SCH (10:09)
[2016-12-25] MEDS: HYDROCHLOROTHIAZIDE 12.5 MG CAP PO SCH (10:10)
[2016-12-25] MEDS: DOCUSATE SODIUM 50 MG/SENNA 8.6 MG TAB PO SCH (10:10)
[2016-12-25] MEDS: LIDOCAINE HCL 5% PATCH T-DERMAL SCH (10:11)
[2016-12-25 12:00] VITALS: BP 139/83; PULSE 60; RESP 18; TEMP 98; O2SAT 97
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
[2016-12-25 15:23] VITALS: O2SAT 97
== END 2016-12-25 17:04 | DRG 493 ==
LOC: NEPI 15:50 → NEDA 17:10 → MERGE 17:10 → EDBD 17:10 → N03B 18:22 → N06B 12-21 09:56 → N06A 12-22 18:09
PROVIDERS: ADMIT Surgery; ATTEND Surgery
PROC: 0QSH04Z Reposition Left Tibia with Internal Fixation Device, Open Approach (ICD-10-PCS; 2016-12-21)
PROC: 0SSG04Z Reposition Left Ankle Joint with Internal Fixation Device, Open Approach (ICD-10-PCS; 2016-12-21)
PROC: 0QSK04Z Reposition Left Fibula with Internal Fixation Device, Open Approach (ICD-10-PCS; principal; 2016-12-21 10:06)
DX: S82.842A Displaced bimalleolar fracture of left lower leg, initial encounter for closed fracture (principal); S27.321A Contusion of lung, unilateral, initial encounter; S06.0X9A Concussion with loss of consciousness of unspecified duration, initial encounter; S22.42XA Multiple fractures of ribs, left side, initial encounter for closed fracture; S02.102A Fracture of base of skull, left side, initial encounter for closed fracture; S42.032A Displaced fracture of lateral end of left clavicle, initial encounter for closed fracture; I10 Essential (primary) hypertension; S93.432A Sprain of tibiofibular ligament of left ankle, initial encounter; F17.210 Nicotine dependence, cigarettes, uncomplicated; H91.92 Unspecified hearing loss, left ear; G47.00 Insomnia, unspecified; V23.4XXA Motorcycle driver injured in collision with car, pick-up truck or van in traffic accident, initial encounter; Y92.410 Unspecified street and highway as the place of occurrence of the external cause
CPT/HCPCS: 29505; 70450; 71010; 71260; 72125; 72170; 73020; 73030; 73600; 74177; 76000; 80048; 80053; 82435; 82565; 82947; 84132; 84295; 84520; 85025; 85610; 85730; 86850; 86900; 86901; 90471; 90715; 94150; 94640; 94664; 96374; 96375; 99291; J1170; C1713; C9113; G0390; J0690; J1100; J1580; J1650; J2250; J2270; J2370; J2405; J2710; J3010; J3370; J7030; J7120; L0150; Q9967